=== PATIENT | male | born 1940 | race Two or more races ===

== ENCOUNTER 2025-09-25 10:11 | Inpatient (IN) | payer OTHER, BC ==
[~2025-09-25] VITALS: Ht 170.2 cm; Wt 74.8 kg
[2025-09-25] MEDS ORDERED: ASPIRIN 325 MG TABLET.EC PO STA (10:35)
[2025-09-25] MEDS ORDERED: NITROGLYCERIN IN 5 % DEXTROSE 250 ML IV SCH (10:45)
[2025-09-25 12:10] LABS: BASO % 0.8 % (0.1-1.2); EOS # 0.57 (0.04-0.54); EOS % 5.9 % (0.7-7.0); LYMPH # 1.83 (1.18-3.74); LYMPH % 18.9 % (19.3-53.1); MEAN PLATELET VOLUME 10.20 fl (9.4-12.4); MONO # 0.88 (0.24-0.82); MONO % 9.1 % (4.7-12.5); NEUT # 6.31 (1.56-6.13); NEUT % 65.0 % (34.0-71.1); RED CELL DISTRIBUTION WIDTH 14.5 % (11.6-14.4)
--- NOTE | 2025-09-25 12:11 | NUR ---
PACIENTE ALERTA Y ORIENTADO X 3. SE ORIENTA DE TRATAMIENTO BRUNO ORDEN MEDICA. REFIERE ENTENDER. SE CANALIZA, SE COLECTAN MUESTRAS Y SE ADMINISTRAN MEDICAMEN- TOS CON MEDIDAS ASEPTICAS CORRESPONDIENTES. SE CONECTA A MONITOR CARDIACO CON SATUROMETRO Y SE COLOCA CANULA NASAL A 1 L. [place] POR ARRIAGA SEGURIDAD SE MONITOREA POR CAMBIOS SIGNIFICATIVOS.
[2025-09-25 12:38] LABS: INR 0.98
[2025-09-25 12:44] LABS: ALT/SGPT 24.0 U/L (12-78); AST/SGOT 22.0 U/L (15-37); BILIRUBIN TOTAL 0.53 mg/dL (0.3-1.2); BUN CREA RATIO 22.0 (7.0-25.0); CREATININE SERUM 0.96 mg/dL (0.70-1.30); GFR 74.27; GLOBULINA 3.2 G/DL (2.4-3.5); GLUCOSE FASTING 122.0 mg/dL (65-100); LDH 227.0 U/L (87-241); OSMOLALITY SERUM 289.0 MOSM/KG (275-295); PHOSPHOKINASE CREATININE 140.0 U/L (39-308)
[2025-09-25] MEDS ORDERED: SODIUM POLYSTYRENE SULFONATE 15 G/4 TSP TSP PO STA (13:55)
[2025-09-25] MEDS ORDERED: MORPHINE SULFATE 4 MG/ML CARTRIDGE IV STA (14:31)
[2025-09-25 14:49] VITALS: BP 120/69; O2SAT 96
[2025-09-25] MEDS ORDERED: DEXTROSE 50 % IN WATER 0.5 G/ML DISP.SYRIN IV PRN (18:15)
[2025-09-25] MEDS ORDERED: INSULIN LISPRO 1,000 UNIT/10 ML UNITS SUBCUTANEO PRN (18:15)
[2025-09-25] MEDS ORDERED: ORPHENADRINE CITRATE 100 MG TABLET PO SCH (18:22)
[2025-09-25] MEDS ORDERED: ENOXAPARIN SODIUM 40 MG/0.4 ML SYRINGE SUBCUTANEO SCH (18:53)
== END 2025-09-26 07:57 | disposition left against medical advice (07) | DRG 311 ==
LOC: ER 10:11 → SEC-K 19:00 → MEDI 19:00 → SEC-K 09-26 00:02
PROVIDERS: Physician Assistant Medical; ADMIT Internal Medicine; ATTEND Internal Medicine
DX: I20.0 Unstable angina (principal); Z53.29 Procedure and treatment not carried out because of patient's decision for other reasons

== ENCOUNTER 2025-10-12 10:26 | Outpatient (CLI) | payer OTHER, BC | END 2025-10-12 10:39 | disposition home or self-care (01) | LOC: TOM 10:26 | PROVIDERS: ATTEND General Practice | DX: M25.512 Pain in left shoulder (principal); S49.92XA Unspecified injury of left shoulder and upper arm, initial encounter; R06.02 Shortness of breath; R07.1 Chest pain on breathing; B02.22 Postherpetic trigeminal neuralgia ==